=== PATIENT | male | born 1935 | race Two or more races ===

== ENCOUNTER → 2018-02-27 | Outpatient (CLI) | payer OTHER, MEDICARE ==
[2018-02-27 11:31] LABS: POC GLUCOSE 126 mg/dL (70-99)
[2018-02-27 14:17] LABS: POC GLUCOSE 162 mg/dL (70-99)
[2018-03-03 07:01] LABS: POC GLUCOSE 107 mg/dL (70-99)
[2018-03-04 10:08] LABS: POC GLUCOSE 161 mg/dL (70-99)
[2018-03-04 15:05] LABS: POC GLUCOSE 114 mg/dL (70-99)
[2018-03-04 15:05] LABS: POC GLUCOSE 131 mg/dL (70-99)
[2018-03-05 10:20] LABS: POC GLUCOSE 199 mg/dL (70-99)
[2018-03-05 12:53] LABS: POC GLUCOSE 172 mg/dL (70-99)
== END | disposition home or self-care (01) ==
LOC: PMGWOUND 09:35
DX: T87.89 Other complications of amputation stump (principal); E11.621 Type 2 diabetes mellitus with foot ulcer; L97.414 Non-pressure chronic ulcer of right heel and midfoot with necrosis of bone; E78.00 Pure hypercholesterolemia, unspecified; E78.5 Hyperlipidemia, unspecified; E66.9 Obesity, unspecified; E11.52 Type 2 diabetes mellitus with diabetic peripheral angiopathy with gangrene; I96 Gangrene, not elsewhere classified; E11.22 Type 2 diabetes mellitus with diabetic chronic kidney disease; I12.9 Hypertensive chronic kidney disease with stage 1 through stage 4 chronic kidney disease, or unspecified chronic kidney disease; N18.3 Chronic kidney disease, stage 3 (moderate); Z79.4 Long term (current) use of insulin; I21.9 Acute myocardial infarction, unspecified; Y92.89 Other specified places as the place of occurrence of the external cause; Z68.28 Body mass index [BMI] 28.0-28.9, adult; Y83.5 Amputation of limb(s) as the cause of abnormal reaction of the patient, or of later complication, without mention of misadventure at the time of the procedure
CPT/HCPCS: 82962; 99204